=== PATIENT | male | born 1980 | race Caucasian/White ===

== ENCOUNTER 2019-04-22 17:40 | Emergency (ER) | payer OTHER, SELFPAY ==
--- NOTE | 2019-04-22 17:46 | ED.GENADULT ---
HPI - General Adult General Chief complaint: Upper Respiratory Infection Stated complaint: cough/chest discomfort/sore throat Time Seen by Provider: 04/22/19 17:47 Source: patient Mode of arrival: ambulatory Limitations: no limitations History of Present Illness HPI narrative: 38-year-old male patient presents the [facility] care with complaints of sore throat cough, fevers, body aches and chills for the past 3 days. Patient states he recently got back from a cruise to [place]. Patient states he did get a flu shot this year. Patient states he has been taking some [id number] Tylenol for his symptoms. Related Data Allergies Allergy/AdvReac Type Severity Reaction Status Date / Time No Known Allergies Allergy Unverified 09/22/13 16:26 Review of Systems Review of Systems: Narrative: CONSTITUTIONAL: Positive subjective fever, body aches, chills, and sweats. EYES: Denies visual changes, redness, or discharge. ENT: Positive rhinorrhea, congestion, sore throat, denies otalgia. CARDIOVASCULAR: Denies chest pain, palpitations, or edema. RESPIRATORY: Positive cough, denies dyspnea. GASTROINTESTINAL: Denies abdominal pain, nausea, vomiting, or diarrhea. GENITOURINARY: Denies dysuria or hematuria. SKIN: Denies rash or itching. MUSCULOSKELETAL: Denies back pain, joint pain, or myalgia. NEUROLOGIC: Positive headache, denies numbness, or weakness. PSYCHIATRIC: Denies anxiety or depression. PMFSH Comments At the time of my signature I agree with nursing past medical history, surgical, social, and family history. There is no relevant family history pertinent to the presenting complaint. Exam Narrative: Exam Narrative: GENERAL: ill-appearing, well-nourished, and in no acute distress. HEAD: Normocephalic, atraumatic. EYES: PERRLA and EOMI. ENT: Nares clear, no rhinorrhea or epistaxis. Mucous membranes moist. Posterior pharynx with no erythema, tonsil enlargement, exudates or lesions present. Bilateral TMs are clear no erythema or foreign bodies in the canal. NECK: Supple. No lymphadenopathy CHEST: Clear to auscultation. No respiratory distress. Patient able talk in clear complete sentences. No tripoding noted. HEART: Regular rate and rhythm. No murmur heard. Normal peripheral pulses. ABDOMEN: Soft, nontender, nondistended, normal active bowel sounds. EXTREMITIES: Normal range of motion. No edema. SKIN: Warm, dry, no rash. NEURO: No focal deficits. Alert and oriented x3. Course Vital Signs Vital signs: Vital Signs Temperature 38.7 C H 04/22/19 17:49 Pulse Rate 102 H 04/22/19 17:49 Respiratory Rate 18 04/22/19 17:49 Blood Pressure 143/78 H 04/22/19 17:49 Pulse Oximetry 100 04/22/19 17:49 Temperature 38.7 C H 04/22/19 17:49 Pulse Rate 102 H 04/22/19 17:49 Respiratory Rate 18 04/22/19 17:49 Blood Pressure 143/78 H 04/22/19 17:49 Pulse Oximetry 100 04/22/19 17:49 Vital signs reviewed. The patient has been informed that they may have pre-hypertension or Hypertension based on a BP reading in the department. I recommend that the patient call the primary care provider listed on their discharge instructions or a physician of their choice this week to arrange follow up for further evaluation of possible pre-hypertension or Hypertension Medical Decision Making Differential Diagnosis Differential Diagnosis: Differential diagnosis: Allergic rhinitis, chronic sinusitis, tonsillitis, acute sinusitis, infectious mononucleosis, seasonal influenza, pertussis, diphtheria, meningococcal disease, viral syndrome, viral bronchitis, RSV. Notify patient that he is positive today for influenza A. Discussed with patient that he is outside the window for antivirals but I can go ahead and prescribe him some cough medication for the cough otherwise the treatment is going to be [id number] Tylenol, Motrin, increase his fluids and plenty of rest. I am also going go ahead and take him off of work for the next couple of days. Discuss
[2019-04-22 17:49] VITALS: BP 143/78; PULSE 102; RESP 18; TEMP 38.7; O2SAT 100
== END 2019-04-22 18:06 | disposition home or self-care (01) ==
PROVIDERS: Emergency Provider Nurse Practitioner Family; PCP Family Medicine
DX: J10.1 Influenza due to other identified influenza virus with other respiratory manifestations (principal)
CPT/HCPCS: 87081; 87804; 87880; 99213; G0463

== ENCOUNTER → 2020-06-06 08:11 | Outpatient (CLI) | payer OTHER, SELFPAY ==
[2020-06-06 19:39] LABS: SARS-CoV-2 RNA PCR Positive
== END ==
PROVIDERS: PCP Family Medicine; Visit Provider Physician Assistant
DX: U07.1 COVID-19 (principal); R68.89 Other general symptoms and signs
CPT/HCPCS: C9803; U0003; U0005

== ENCOUNTER 2022-07-12 06:45 | Day surgery (SDC) | payer OTHER, SELFPAY ==
[2022-05-17 14:16] VITALS: BMI 28.7
[2022-07-06 10:00] VITALS: BMI 28.8
--- NOTE | 2022-07-09 13:05 | WPDANESEPPF ---
Anes - Initial Pre Proc Eval Procedure: Operation Date: 07/12/22 08:30 Proposed Procedures p Esophagogastroduodenoscopy - Archie Sadler MD Date/Time: 07/09/22 13:05 Surgeon: Archie Sadler MD Pre Op Diagnosis: Gastritis Unspecified without Bleeding Patient Data Age: 41 Gender: M Height: 1.78 m Weight: 91 kg Allergies Allergy/AdvReac Type Severity Reaction Status Date / Time No Known Allergies Allergy Verified 07/12/22 07:24 Home Medications Medication Instructions Recorded Confirmed Type alprazolam 0.5 mg tablet 0.5 mg PO QHS PRN anxiety #30 tabs 05/04/22 07/12/22 Rx Patient hx anesthesia problems: none Family hx anesthesia problems: none Results Review: All pre-operative results and documents have been reviewed as part of the pre-operative evaluation. [facility] Past Medical History Medical History Anxiety Migraines Panic attacks Surgical History Surgical History History of repair of ACL left knee 2009 Family History Family History Father No problems noted. Mother No problems noted. Social History Social History Smoking status: Never smoker Alcohol intake: current Drinks per week: 3 Alcohol use details: pt states has a few drinks 1 time per week Substance use: never Substance use type: does not use Lack of Transportation: No Lack of Food: Never True Current Housing: I Have Housing Concerned About Future Housing: No Difficulty Paying Gas/Electric Bills: No Difficulty Paying for Meds: No Currently Unemployed: No Education: Bachelor's Degree Difficulty w/ Childcare or Family Care: No Living arrangements: with family Occupation/Education: occupation Gender identity (if verbalized by the patient): Male Spiritual care concerns: No Anes - Eval Final PreProcedure Day of Procedure 07/09/22 13:05 Patient weight: overweight Heart: regular rate and rhythm Lungs: clear to auscultation Airway: Mallampati scale class II Neurological: alert and oriented Last oral intake: >/= 8 hours ASA classification: II Emergent: no Anesthetic plan: proceed Anesthesia type and monitoring: general GIVS and standard monitoring Results Review: All pre-operative results and documents have been reviewed as part of the pre-operative evaluation. Informed Consent: The patient's anesthetic plan and its attendant risks and benefits were discussed with the patient/family/POA. Questions were solicited and answers provided to the satisfaction of the patient/family/POA.
--- NOTE | 2022-07-09 16:07 | PM.HPGS ---
History of Present Illness History of Present Illness Consent: Risks, benefits, and alternatives have been discussed and questions answered. Patient agrees to proceed with procedure. Chief complaint: Gastritis Unspecified without Bleeding Narrative: Von Gonzalez is a 41 year old male Referred for EGD because of suspected gastritis. Review of Systems Review of Systems: All systems reviewed & are unremarkable except as noted in HPI and below PMFSH Past Medical History Medical History Anxiety Migraines Panic attacks Surgical History Surgical History History of repair of ACL left knee 2008 Family History Family History Father No problems noted. Mother No problems noted. Social History Social History Smoking status: Never smoker Alcohol intake: current Drinks per week: 3 Alcohol use details: pt states has a few drinks 1 time per week Substance use: never Substance use type: does not use Lack of Transportation: No Lack of Food: Never True Current Housing: I Have Housing Concerned About Future Housing: No Difficulty Paying Gas/Electric Bills: No Difficulty Paying for Meds: No Currently Unemployed: No Education: Bachelor's Degree Difficulty w/ Childcare or Family Care: No Living arrangements: with family Occupation/Education: occupation Gender identity (if verbalized by the patient): Male Spiritual care concerns: No Meds Home Medications and Allergies Home Medications Medication Instructions Recorded Confirmed Type alprazolam 0.5 mg tablet 0.5 mg PO QHS PRN anxiety #30 tabs 05/04/22 07/12/22 Rx Allergies Allergy/AdvReac Type Severity Reaction Status Date / Time No Known Allergies Allergy Verified 07/12/22 07:24 Exam Const: General: alert Orientation/consciousness: patient oriented x3 Resp: Auscultation: clear to auscultation bilaterally Cardio: Rhythm: regular rhythm GI: GI Palp: Yes Soft to palpation and No Tenderness to palpation present (GI) Neuro: General: patient oriented x3 Assessment and Plan Assessment and plan (1) Chest pain: Code(s): R07.9 - Chest pain, unspecified Status: Acute Assessment and Plan: EGD with possible biopsy or dilatation or cautery.
[2022-07-12 07:20] VITALS: BP 130/95; PULSE 71; RESP 20; TEMP 36.9; O2SAT 100
[2022-07-12] MEDS: LACTATED RINGERS 1,000 ML 150 ML IV CONT (07:40)
[2022-07-12 08:35] VITALS: BP 109/80; PULSE 74; RESP 16; O2SAT 100
[2022-07-12 08:45] VITALS: BP 120/99; PULSE 68; RESP 16; O2SAT 100
[2022-07-12 08:55] VITALS: BP 117/82; PULSE 62; RESP 16; O2SAT 100
--- NOTE | 2022-07-12 13:20 | WPDANESPN ---
Anes - Prog Note Post-Op Date/Time: 07/12/22 13:20 Cardiovascular status: normal Respiratory status: normal Airway patency: baseline Mental status: baseline Post-Op hydration status: normal Vital Signs: Last Vital Signs Temp 36.9 C 07/12/22 07:20 Pulse 62 07/12/22 08:55 Resp 16 07/12/22 08:55 BP 117/82 07/12/22 08:55 Pulse Ox 100 07/12/22 08:55 O2 Del Method Room Air 07/12/22 08:55 Pain Score (VAS): 0 I/O: Intake & Output 07/11/22 07/12/22 07/12/22 23:59 07:59 15:59 Intake Total 400 Balance 400 Post-procedural complaints: none Patient Feedback: Patient satisfied with anesthetic care. Other Findings: Patient vital signs back to baseline. Patient denies nausea and vomiting. Patient's pain under control. Patient OK for discharge.
== END 2022-07-12 09:11 | disposition home or self-care (01) ==
PROVIDERS: PCP Family Medicine; Visit Provider Internal Medicine Gastroenterology
PROC: 0DJ08ZZ Inspection of Upper Intestinal Tract, Via Natural or Artificial Opening Endoscopic (ICD-10-PCS; CPT 43235; principal; 2022-07-12 08:30)
DX: K21.9 Gastro-esophageal reflux disease without esophagitis (principal)
CPT/HCPCS: 43239